=== PATIENT | female | born 1945 | race Caucasian/White ===

== ENCOUNTER 2016-08-12 13:02 | Inpatient (IN) | payer MEDICARE, OTHER ==
[~2016-08-12] VITALS: Ht 162.6 cm; Wt 89.5 kg
[2016-08-12] VITALS (9 sets, daily range): BP systolic 139–181; BP diastolic 50–74; PULSE 74–92; RESP 14–20; O2SAT 94–100
--- NOTE | 2016-08-12 13:16 | ED.REPORT ---
HPI-Abd Pain F 40 and Over Date of Service Aug 12, 2016 ED Provider: Brian Gimenez MD Pt is a 70 year old female with a hx of anemia, aortic valve replacement, vertigo, HTN, and a lower GI bleed May 2016 presenting to the ED complaining of bright red bloody stool in the x10 episodes onset at 1045 this morning. Associated symptoms include 5/10 lower left abd pain that shoots upward , facial numbness, fatigue, lightheadedness, dizziness, dysphagia. Denies nausea , vomiting, diarrhea, constipation, fever, chills. The pt takes 81 mg baby Aspirin per day. She was scheduled to have a colonoscopy at [place] on 08/15 but her PCP advised her to go to the ER due to her hx of anemia. Pt has not had a colonoscopy for the GI bleed in May, but has one scheduled for August 15. She has been getting regular colonoscopies since she was 36. Nursing Notes Stated Complaint: BLOODY STOOL Chief Complaint: Female Abdominal Pain Nursing Notes Reviewed: Yes Allergies: Coded Allergies: Beta-Blockers (Beta-Adrenergic Bloc (Verified Allergy, Intermediate, Hives , 08/12/16) atenolol (Verified Allergy, Mild, 08/12/16) Scheduled PRN Bisacodyl (Dulcolax) 5 Mg Tablet.dr 5 MG PO DAILY PRN PRN For Constipation General Time Seen by MD: 13:11 Chief Complaint Rectal bleeding Hx Obtained From: Patient Arrived By: Walk-in Sudden in Onset?: Yes Onset Occurred: 5 - 8 hours ago Symptom Duration: Since onset Progression since Onset: Constant Severity: Current: No pain currently Severity: Maximum: No pain Recent Healthcare: No recent doctor visit, No recent hospitalization Similar Sx Previous: No Past Medical History Past Medical History anemia, aortic valve replacement, vertigo, HTN Past Surgical History Reports: Cholecystectomy Family History Mother, aunt and grandmother have hx of colon cancer in their 60s-70s Smoking History Current Every Day Smoker Ambulatory Status Independent Review of Systems Constitutional: Reports: Fatigue, Denies: Chills, Fever GI: Reports: Abdominal pain, Bloody/tarry stool, Denies: Constipation, Diarrhea, Melena, Nausea, Vomiting Complete sys rev & neg: except as marked. Ears / Nose / Throat: Reports: Throat pain (Trouble swallowing) Neurologic: Reports: Dizziness, Lightheaded, Numbness Physical Exam Vital Signs Vital Signs (First) Date Time Temp Pulse Resp B/P Pulse Ox O2 Delivery O2 Flow Rate FiO2 08/12/16 13:05 36.4 92 20 181/74 100 08/12/16 14:09 Room Air Initial VS: Reviewed Head / Eyes: Atraumatic, Normocephalic, PERRL ENT: Mucous membranes moist, Conjunctiva normal, No scleral icterus Extremities: Vascular intact, Neuro intact, No swelling, No tenderness Skin: Warm, Dry, No cyanosis Neurologic: Alert, Oriented, Nonfocal Psychiatric: Mood/affect normal, Behavior normal, Normal thought content General/Constitutional: Awake, Alert Respiratory / Chest: Breath sounds NL, Breath sounds = bilat, No respiratory distress, No rales, No rhonchi, No wheezing, No stridor Cardiovascular: Heart rate NL, Regular rhythm, Heart sounds NL, Peripheral circulation NL Rectum / Perineum: Atraumatic, No gross blood Rectal for Blood: Negative: Melena present Guaiac positive. Interpretation & Diagnostics Lab Results Interpretation Result Diagram: 08/12/16 1320 08/12/16 1320 Test 08/12/16 13:20 08/12/16 15:33 White Blood Count 8.6th/mm3 (3.8-10.1) Red Blood Count 4.64mil/mm3 (3.90-5.20) Hemoglobin 11.0g/dL (12.0-15.6) Hematocrit 35.7% (35.0-46.0) Mean Corpuscular Volume 76.9fL (81-100) Mean Corpuscular Hemoglobin 23.7pg (27.0-35.0) Mean Corpuscular Hemoglobin Concent 30.8% (32.0-37.0) Red Cell Distribution Width 15.2% (12.3-15.4) Platelet Count 308bil/L (150-400) Neutrophils (%) (Auto) 56.1% (40-74) Lymphocytes (%) (Auto) 31.6% (14-46) Monocytes (%) (Auto) 8.4% (4-12) Eosinophils (%) (Auto) 3.2% (0-5) Basophils (%) (Auto) 0.6% (0-3) Prothrombin Time 10.5sec (8.1-12.5) Prothromb Time International Ratio 0.98ratio Sodium Level 139mEq/L (134-144) Potassium Level 4.0mEq/L (3.5-5.2) Chloride Level 100mEq/L (97-108) Carbon Dioxide Level 22mmol/L (18-29) Blood Urea Nitrogen 13mg/dL (8-27) Creatinine 0.64mg/dL (0.57-1.00) Estimat Glomerular Filtration Rate 132mL/min (>59) Glucose Level 124mg/dL (60-99) Calcium Level 9.7mg/dL (8.5-10.1) Total Bilirubin 0.4mg/dL (0.0-1.2) Aspartate Amino Transf (AST/SGOT) 28U/L (0-50) Alanine Aminotransferase (ALT/SGPT) 29U/L (0-32) Alkaline Phosphatase 102U/L (25-165) Total Protein 7.9g/dL (6.4-8.4) Albumin 4.9g/dL (3.4-5.0) Hold [place] Top Tube Received (Received) Urine Color Yellow (YELLOW) Urine Appearance Clear (CLEAR,HAZY) Urine pH 6.0 (5.0-8.0) Urine Specific [place] <1.005 (1.003-1.035) Urine Protein Negativemg/dL (NEG,TRACE) Urine Glucose (UA) Negativemg/dL (NEGATIVE) Urine Ketones Negativemg/dL (NEGATIVE) Urine Occult Blood Trace (NEGATIVE) Urine Nitrite Negative (NEGATIVE) Urine Bilirubin Negative (NEGATIVE) Urine Urobilinogen Normalmg/dL (NORMAL) Urine Leukocyte Esterase Negative (NEGATIVE) Urine RBC 0-2/hpf (0-2) Urine WBC 0-5/hpf (0-5) Urine Epithelial Cells Occasional/hpf (NONE-MOD) Urine Crystals None seen (NONE SEEN) Urine Bacteria None/hpf (NONE-FEW) Urine Hyaline Casts None/lpf (NONE) Urine Granular Casts None seen (NONE SEEN) Urine Waxy Casts None seen (NONE SEEN) Urine Red Blood Cell Casts None seen (NONE SEEN) Urine White Blood Cell Casts None seen (NONE SEEN) Urine Mucus None seen (None Seen) Urine Trichomonas None seen (NONE SEEN) Urine Yeast None (NONE SEEN) Urinalysis Comment None Urine Culture Reflexed Not indicated ECG Interpretation ECG Interpretation: No ST elevations. Time: 13:38 Interpreted by: ED physician Normal ECG Interpretation: Normal ECG w/ rate of... (84), Normal sinus rhythm X-Ray Chest Interpretation Chest Xray Interpretation: IMPRESSION: No acute cardiopulmonary disease. Dictated by: Beatriz Velez M.D. on 08/12/2016 at 14:04 View: Portable, 1 view Interpretation / Wet Read by: Interpret - Radiologist Re-Eval/Medical Decision Med Decision/Clinical Course 70-year-old female history of GI bleed, aortic valve replacement, anemia who was being evaluated as an outpatient for a GI bleed with plan for colonoscopy next week outside facility presenting with bright red blood per rectum 10 stools earlier today. No hematemesis. Mild abdominal pain. Blood pressure is normal. Hemoglobin is 11. We do not have a baseline. Stools no gross blood. Guaiac positive. Discussed with GI who recommended admission for GI bleed with plan to perform colonoscopy possible endoscopy. She does have a history of dysphagia. In the past. Started on PPI drip. Re-Evaluation/Progress : Time of Eval: 15:10 Patient Status: Condition improved Re-Evaluation/Progress Note: Discussed plan for admission and colonoscopy. Pt understands and agrees. Consultation #1: Referral / Consult Name: Iraj Cr MD Call Returned at: 14:57 Fire Equipment Inspector Helper: Agrees with plan Note: GI. See if the pt would like to be admitted overnight. Consultation #2: Referral / Consult Name: Larry Fraire MD Consulted With: Hospitalist Call Returned at: 15:06 Fire Equipment Inspector Helper: Will see patient, Agrees with plan, Accepts admit Consultation #3: Referral / Consult Name: Iraj Cr MD Call Returned at: 15:10 Note: GI. The pt will be admitted and have a colonoscopy. Counseled Regarding: Diagnosis, Lab results, Need for follow-up, When/why to return to ED Discharge & Departure Primary Impression: GI bleed GI bleed type/associated pathology: unspecified gastrointestinal hemorrhage type Qualified Code: K92.2 - Gastrointestinal hemorrhage, unspecified Disposition: ADMITTED TO HOSPITAL Discharge Condition All VS Reviewed: Yes Condition: Improved Referrals: OTHER,PHYSICIAN (PCP) (Family) Scribe Attestation Portions of this note were transcribed by Hannah. Guerrero, Dr. Gimenez personally performed the history, physical exam and medical decision-making; I reviewed and confirmed the accuracy of the information in the transcribed note. Signed by: Suly Barillas, 08/12/2016 and 1548. Brian Gimenez MD Aug 12, 2016 13:15 ANDREA EDGAR Aug 12, 2016 14:11
[2016-08-12] MEDS ORDERED: 0.9% Sodium Chloride 1,000 ML IV ONE (13:17)
[2016-08-12 13:39] LABS: BASOPHILS % (AUTO) 0.6 % (0-3); EOSINOPHILS % (AUTO) 3.2 % (0-5); MONOCYTES % (AUTO) 8.4 % (4-12); Mean Corpuscular Hemoglobin 23.7 pg (27.0-35.0); Mean Corpuscular Volume 76.9 fL (81-100); NEUTROPHILS % (AUTO) 56.1 % (40-74); Platelet Count 308 bil/L (150-400)
[2016-08-12 13:48] LABS: INR 0.98 ratio
[2016-08-12] MEDS ORDERED: Albuterol-Ipratropium 3 mL Inhalation Solution NEB ONE (14:00)
--- NOTE | 2016-08-12 14:10 | DRSVH ---
PROCEDURE: X-RAY CHEST ONE VIEW, PORTABLE ([id number]) INDICATIONS: Gastrointestinal Bleed TECHNIQUE: One view of the chest was acquired. COMPARISON: [facility], CR, CHEST 2VW, 03/29/2012, 15:45. FINDINGS: Surgical changes and devices: Sternotomy and a prosthetic heart valve. Lungs and pleura: No pleural effusions or pneumothorax. Lungs are clear. Mediastinum: Mediastinal contours appear normal. Heart size is normal. Bones and chest wall: No suspicious bony lesions. Overlying soft tissues appear unremarkable. IMPRESSION: No acute cardiopulmonary disease. Dictated by: Beatriz Velez M.D. on 08/12/2016 at 14:04 Approved by: Beatriz Velez M.D. on 08/12/2016 at 14:05
[2016-08-12] MEDS ORDERED: Ondansetron 2 mg/mL 2 mL Inj IVPUSH PRN (15:15)
[2016-08-12] MEDS ORDERED: Alum-Mag Hydrox-Simeth 30 mL Suspension PO PRN (15:15)
[2016-08-12] MEDS ORDERED: Pantoprazole 4 mg/mL 10 mL Inj IVPUSH ONE (15:20)
[2016-08-12] MEDS ORDERED: Pantoprazole Inj 80 MG, Pharmacy To Mix 1 EA in 0.9% Sodium Chloride 80 ML IV ONE ×2 (15:20)
[2016-08-12] MEDS ORDERED: Polyethylene Glycol (PEG) 17 Gm Powder PO PRN (15:25)
[2016-08-12] MEDS ORDERED: PEG/Electrolytes 4,000 mL Solution PO ONE ×2 (15:25→21:15)
--- NOTE | 2016-08-12 15:43 | PCM.HPMED ---
Subjective Date of Service Aug 12, 2016 Primary Provider: Admitting Physician: Primary Care Physician: Mohsen Crooks MD Attending Physician: Chief Complaint: - Bright red bleeding per rectum History of Present Illness: 70 year old female with a h/o anemia, aortic valve replacement, vertigo, hypertension presented to the ED with c/o bright red bloody stool. She states that bleeding started this morning with multiple episodes. It is associated with left lower abdominal pain, mild dizziness, fatigue and lightheadedness. She denies nausea, vomiting, diarrhea, constipation, fever, chills. She is on aspirin 81 mg. She was scheduled to have a colonoscopy at [place] on 08/15 but her PCP advised her to go to the ER due to her history of anemia and multiple episodes of bleeding. She had similar episode of lower GI bleed in 05/2016 but didn't underwent colonoscopy at that time. She has been getting regular colonoscopies since she was 36. In ED, she was hypertensive and mildly tachycardic. Labs were significant only for low hematocrit of 35.7.GI was consulted from ED, recommended to start PPI drip, NPO and possible colonoscopy tomorrow. Review of Systems: - Positive as per noted in HPI. Otherwise, a complete 14 - point review of system is negative. Allergies Coded Allergies: Beta-Blockers (Beta-Adrenergic Bloc (Verified Allergy, Intermediate, Hives , 08/12/16) atenolol (Verified Allergy, Mild, 08/12/16) PMH - Chronic anemia - Hypertension - Vertigo Surgical History - Aortic valve replacement - Cholecystectomy Social History Hx Alcohol Use: Yes (Once in a blue valencia-wine) Hx Substance Use: No Smoking Status: Current Every Day Smoker Exam Vital Signs Vital Sign - Last Date Time Temp Pulse Resp B/P Pulse Ox O2 Delivery O2 Flow Rate FiO2 08/12/16 14:09 74 18 98 Room Air 08/12/16 13:05 36.4 181/74 Exam General/Constitutional: Awake, Alert Head / Eyes: Atraumatic, Normocephalic, PERRL ENT: Mucous membranes moist, Conjunctiva normal, No scleral icterus Respiratory: Clear to auscultation bilaterally, Normal respiratory effort, No respiratory distress, No rales, No rhonchi, No wheezing, No stridor Cardiovascular: Regular rate and rhythm. No peripheral edema. No murmur, gallop. Extremities: Vascular intact, Neuro intact, No swelling, No tenderness Skin: Warm, Dry, No cyanosis Neurologic: Alert, Oriented, Nonfocal Psychiatric: Mood/affect normal, Behavior normal, Normal thought content Lab and Diagnostics Result Diagram: 08/12/16 1320 08/12/16 1320 X-Rays, CTs and MRIs CXR: IMPRESSION: No acute cardiopulmonary disease. Assessment & Plan GI bleeding - likely lower as it it bright red - GI consulted. Placed on PPI drip - NPO, Likely colonoscopy tomorrow - Bowel preparation Hypertension - Will continue to monitor - Home medications on hold as pt is NPO GI ppx: on PPI drip DVT ppx: SCDs. No medical anticoagulation due to GI bleeding Antiemetics and bowel regimen as per protocol. Status: To be admitted as inpatient due to complexity of medical condition that will require more than two days of hospital stay. Pain Evaluation: Adequate Pain Control GI Prophylaxis: Proton Pump Inhibitor VTE Prophylaxis: SCDs Resuscitation Status: CPR: Attempt Resuscitation Larry Fraire MD Aug 12, 2016 15:42
[2016-08-12 16:47] LABS: APPEARANCE,URINE CLEAR (CLEAR,HAZY); COLOR,URINE YELLOW (YELLOW)
[2016-08-12 16:48] LABS: OCCULT BLOOD,URINE TRACE (NEGATIVE); UROBILINOGEN,URINE NORMAL (NORMAL)
[2016-08-12] MEDS ORDERED: BISA-67 PO (18:24)
[2016-08-12] MEDS ORDERED: ASPI-973 PO (18:41)
[2016-08-12] MEDS ORDERED: LISI10TA PO (18:41)
[2016-08-12] MEDS ORDERED: SERT100T9 PO (18:41)
[2016-08-12] MEDS ORDERED: DIPH25CA6 PO (18:41)
[2016-08-12] MEDS ORDERED: VERA240C PO (18:41)
[2016-08-12] MEDS ORDERED: SIMV20TA4 PO (18:41)
[2016-08-12] MEDS ORDERED: NITR0.4T6 SL (18:41)
[2016-08-12] MEDS ORDERED: GABA600T2 PO (18:41)
[2016-08-12] MEDS ORDERED: LANS30CA14 PO (18:41)
[2016-08-12] MEDS ORDERED: GEMF600T PO (18:41)
--- NOTE | 2016-08-12 18:45 | NUR ---
Admit Pt was admitted to [facility] room 1019 at 1730. A&Ox3. Abdominal pain at tolerable level of 5/10. Protonix drip running. IV site looked good. Pt able to ambulate from stretcher to bed, steady gait. Admission and med req done. Pt's is going to bring her POLST in. Care continues.
[2016-08-12] MEDS ORDERED: fentaNYL-PF 50 mCg/mL 2 mL Inj ONE (19:06)
[2016-08-12] MEDS ORDERED: 0.9% Sodium Chloride 1,000 ML ONE (19:06)
--- NOTE | 2016-08-12 19:41 | NUR ---
Off Unit 1939 Patient off unit to Endo at 0 via hospital bed. Patient A&OX3 and serg. BARRIE ZAPIEN RA. Chart with patient. Addendum: 08/12/16 at 2233 by SABINA WERNER RN Correction: Patient left unit [facility], not bed.
[2016-08-12 19:51] LABS: APPEARANCE,URINE CLEAR (CLEAR,HAZY); COLOR,URINE YELLOW (YELLOW); OCCULT BLOOD,URINE NEGATIVE (NEGATIVE); UROBILINOGEN,URINE NORMAL (NORMAL)
--- NOTE | 2016-08-12 20:13 | PCM.ENDEGD ---
EGD Date of Service: Aug 12, 2016 Physician Ashley Cr MD Indication for Procedure melena anemia and bright red blood in stool Post Procedure Dx & Findings: gastric erosions and fundic gland polyps Procedure Esophagogastroduodenoscopy PROCEDURE IN DETAIL: The patient was placed in left lateral decubitus position. Bite block was placed. Scope lubricated, placed in posterior pharynx, passed through the cricopharyngeus and esophagus, slowly advanced the entire length of the gastric pouch, pylorus was identified, scope passed through the pylorus and descending portion of duodenum, withdrawn in the antrum, retroflexed upon itself for view of fundus and cardia. Scope was then withdrawn through the oropharynx. The esophagus showed none obstructing schatzki ring. Z line was at 42 cm. Minimal hiatal hernia noted. Stomach showed few 1-3 mm fundic gland polyps in the fundus. The cardia body and antrum were normal except few 2-3 mm erosions. Stomach was easily inflatable and deflatable using air. Duodenum was normal with normal villus structures and folds. We advanced to distal duodenum. Impression None obstruction schatzki ring (not the cause of dysphagia) Few small fundic gland polyps No source of anemia or bleeding Recommendation Colonoscopy in am Stop protonic IV Continue outpatient PPI ( she has lanzoprzole as outpt) Presedation Assessment Risks and Benefits Informed consent was obtained from the patient after all risks and benefits including but not limited to drug reaction, infection, pain, bleeding, perforation, as well as alternatives were discussed. Patient monitoring Continuous pulse oximetry, cardiac monitoring, blood pressure monitoring, IV access, and oxygen at 2L per nasal cannula. Periprocedural Fentanyl: Fentanyl 125mcg Incrementally Midazolam: Midazolam 6mg Incrementally Complications There were no periprocedural complications identified. Post Procedure Plan Post Procedure Recommendations 1. Restrict activities today. 2. Resume normal activities in the morning. 3. Resume medications. 4. GERD behavioral modification: - Avoid fatty, acidic, spicy, large meals - Do not lie down after meals - Do not eat or drink anything for at least 2 1/2 hours before going to bed at night - Discontinue tobacco and alcohol - Decrease or avoid caffeine - Avoid chocolate and mints - Decrease weight - Avoid aspirin and non steroidal anti-inflammatory agents (NSAID) such as Aleve, Advil, Mobic, Naproxen, Ibuprofen, etc 5. Add proton pump inhibitor. Take 30 minutes before 1st meal of the day. 6. Patient informed of normal post procedure side effects as bloating, drowsiness, blood streaking in the stool 7. If gastric biopsy reveal H.pylori, continue with appropriate treatment 8. If small bowel biopsy reveals celiac, continue with appropriate treatment 9. Please don't hesitate to call me with any questions Iraj Cr MD Aug 12, 2016 20:13
--- NOTE | 2016-08-12 22:30 | NUR ---
Back to floor Patient back to floor at 2033 via [facility]. Patient is A&OX3, and pleasant. SL. RA. Able to ambulate back to hospital bed. Chart with patient
[2016-08-13] VITALS (9 sets, daily range): BP systolic 110–168; BP diastolic 49–89; PULSE 73–84; RESP 16; O2SAT 95–99
--- NOTE | 2016-08-13 03:45 | NUR ---
Bowel Prep Patient started bowel prep at approx 2130. Patient has been having frequent watery loose stools throughout the night, but continues to be bloody. At 0345 Patient states that amount of watery stool is starting to decrease. Will continue to monitor, and continue Q1 hour checks.
[2016-08-13 07:41] LABS: BASOPHILS % (AUTO) 0.7 % (0-3); EOSINOPHILS % (AUTO) 4.4 % (0-5); MONOCYTES % (AUTO) 12.3 % (4-12); Mean Corpuscular Hemoglobin 23.9 pg (27.0-35.0); Mean Corpuscular Volume 78.4 fL (81-100); NEUTROPHILS % (AUTO) 56.8 % (40-74); Platelet Count 230 bil/L (150-400)
[2016-08-13] MEDS ORDERED: fentaNYL-PF 50 mCg/mL 2 mL Inj ONE (09:46)
[2016-08-13] MEDS ORDERED: 0.9% Sodium Chloride 1,000 ML ONE (09:46)
--- NOTE | 2016-08-13 11:28 | PCM.ENDCOL ---
Colonoscopy Date of Service: Aug 13, 2016 Physician Iraj Cr MD Indication for Procedure Blood in stool Post Procedure Dx & Findings: AVM Procedure Colonoscopy Prep poor in many areas. PROCEDURE IN DETAIL: The left side of the colon had relatively isolated adequate prep however throughout the colon, there were areas of old blood scattered throughout the colon which impaired visualization. He intubated the cecum and we were able to see the appendiceal orifice and ileocecal valve. There was a small maybe about 5-6 mm AVM that was oozing blood. Due to the angle, we used 3 hemostatic clips deployed and 2 mL of epinephrine injection at the site. Complete hemostasis achieved. Scope was withdrawn. There was also a 3 mm polyp in the cecum which was not removed. In the rectum retroflexion was done which shows some hemorrhoids. Impression Bleeding AVM status post epinephrine intake injection and he most stated clip deployment and hemostasis achieved. I suspect patient's canal have more blood already on coming out as a bowel movement. Mild hemorrhoids noted. Recommendation Follow hemoglobin and try to keep the hemoglobin level around 9. This is to give the patient some reserve in case there is rebleeding. Presedation Assessment Risks and Benefits Informed consent was obtained from the patient after all risks and benefits including but not limited to drug reaction, infection, pain, bleeding, perforation, as well as alternatives were discussed. Patient monitoring Continuous pulse oximetry, cardiac monitoring, blood pressure monitoring, IV access, and oxygen at 2L per nasal cannula. Periprocedural Fentanyl: Fentanyl 125mcg Incrementally Midazolam: Midazolam 6mg Incrementally Complications There were no periprocedural complications identified. Post Procedure Plan Post Procedure Recommendations 1. Restrict activities today. 2. Resume normal activities in the morning. 3. Resume medications. 4. Patient informed of normal post procedure side effects as bloating, drowsiness, blood streaking in the stool. 5. average risk CRCS. If colon polyps come back as: -Hyperplastic- can repeat colonoscopy in 10 years -Tubular adenoma- repeat colonoscopy in 5 years -Tubulovillous/villous adenoma- repeat colonoscopy in 3 years -If any dysplasia- return to clinic as soon as possible 6. Please don't hesitate to call me with any questions. Iraj Cr MD Aug 13, 2016 11:28
[2016-08-13] MEDS ORDERED: Lactated Ringer's 1,000 ML IV ONE (11:57)
--- NOTE | 2016-08-13 14:18 | NUR ---
Social Work: Initial Assessment Data & Assessment: EMR Reviewed. See Initial Assessment. Patient is a 70/yo female that admitted for GI Bleed. SW met with patient at bedside to discuss dc plan, complete initial assessment and SW role explained. Patient' NOK is her Ralph Galo- [phone]. Patient' DPOA is her daughter. SW requested a copy of patient's DPOA. Patient's PCP is Dr. Mohsen Crooks. Patient's primary insurance is Medicare and [facility]. Patient does niot have a re-admit score. Patient does not have LTC or VA benefits. Patient has never been to a SNF facility. Patient lives in a modular home with her . Patient is independent at baseline and drives. Patient's home has 8 steps to enter. Patient has had HH services, but canot recall the name. Patient does not have any social work needs at this time, but SW will continue to follow. Patient will pick her up when discharged. Plan: Patient will discharge home with no needs when medically ready. Patient will transport home via POV. SW will continue to follow. Dandre Quispe LMSW, ANGIE Addendum: 08/13/16 at 1428 by DANDRE QUISPE Amended: Links added.
--- NOTE | 2016-08-13 17:18 | PCM.PNMED ---
Subjective Date of Service Aug 13, 2016 Subjective reports migraine headache post colonoscopy today. Exam Vital Signs Vital Sign - Last Date Time Temp Pulse Resp B/P Pulse Ox O2 Delivery O2 Flow Rate FiO2 08/13/16 11:47 36.9 79 16 150/49 98 Room Air 08/13/16 11:20 2 Intake and Output 08/12/16 08/12/16 08/13/16 Cumulative From/Thru 15:00 23:00 07:00 08/12/16 13:05 - 08/13/16 06:52 Intake Total 1000 ml 300 ml 0 ml 1300 ml Output Total 350 ml 350 ml Balance 1000 ml -50 ml 0 ml 950 ml Intake Oral 0 ml 0 ml 0 ml IV Total 1000 ml 300 ml 0 ml 1300 ml Output Urine Total 350 ml 350 ml # Voids 2 2 # Bowel Movements 4 4 General: Alert, Cooperative, No Acute Distress Eyes: Scleral Anicteric Mouth: Mucous Membr Moist/[place] Neck: Supple Chest & Lungs: Chest Wall Normal, Clear to auscultation & percussion Cardiovascular: Regular Rate/Rhythm Abdomen: Tender (mild left lower. no rebound/guarding), Non-distended, Normoactive bowel tones, Soft Extremities: No cyanosis/clubbing/edma bilat Neurological: Grossly Neurologically Intact, Normal Speech IVs and Medications Medications Reviewed: Medications were reviewed in detail Lab and Diagnostics Result Diagram: 08/13/1659 08/13/16 0659 X-Rays, CTs and MRIs CXR: IMPRESSION: No acute cardiopulmonary disease. Assessment & Plan 70 year old female with a h/o anemia, bovine aortic valve replacement, vertigo, hypertension presented to the ED with c/o bright red bloody stool. # Acute lower GI bleed, poa. - appreciate GI consult. will f/u w/ recs - EGD 08/12 showing: "None obstruction Schatzki ring (not the cause of dysphagia ) Few small fundic gland polyps No source of anemia or bleeding" - colonoscopy 08/13: "Bleeding AVM status post epinephrine intake injection and he most stated clip deployment and hemostasis achieved." - appreciate GI consult. will f/u w/ recs - f/u repeat h/h - keep Hgb > 9 - advance diet per GI recs # History of Hypertension. fairly stable - hold PO meds for now - cover with prn IV Hydralazine # Migraine headache. acute on chronic. - supportive care Dispo: 1-2 days pending stable h/h GI Prophylaxis: Proton Pump Inhibitor VTE Prophylaxis: SCDs VTE Mechanical Devices: Intermittant Pneumatic CD Resuscitation Status: CPR: Attempt Resuscitation Christiano Herrera Aug 13, 2016 17:18
--- NOTE | 2016-08-13 18:47 | NUR ---
Bowels Pt continuing to have loose stools with blood in them, but frequency and amount of blood are decreasing as shift progresses. H&H has improved since last lab. Pt is asymptomatic and states not dizzy at all when getting up to BR. Advised if she does have any s/s she needs to use call light and have us help her, so she doesn't fall. Pt is agreeable. This afternoon pt has c/o migraine and wants oxygen since she states it helps her. advised 2L NC. Pt still on clear liquids only. Pt has only mild LLQ pain 07/25 and declines meds. Addendum: 08/13/16 at 1933 by JUAN TA RN Pt c/o sore bottom from going so much, gave her Calmoseptine cream and barrier wipes to use. Bottom not red, but was tender.
[2016-08-13] MEDS ORDERED: Lactated Ringer's 1,000 ML IV SCH (21:20)
--- NOTE | 2016-08-14 03:22 | NUR ---
Gabapentin Patient states that she takes scheduled gabapentin, 600mg TID, but has not received any since her admission. Night hospitalist notified, and an order for 600mg was written for this evening. Hospitalist has asked to pass this along to day shift nurse, so scheduled gabapentin regimen can be completed with day hospitalist team. Patient continues to use 2 L O2 via NC for migraine. Care continues.
--- NOTE | 2016-08-14 03:26 | NUR ---
08/13/16 11pm HGB Order for evening HBG lab draw was completed, and results showed a HGB of 8.1. Night hospitalist notified; no new orders at this time. Patient has had no complaints of dizziness, or lightheadedness, and bowel movements continue to decrease in frequency, amount, and the amount of blood that is present. Last BM observed did not have a significant amount of blood present. Will continue to monitor, and continue Q1 hour checks.
[2016-08-14 06:10] VITALS: BP 134/72; PULSE 78; RESP 18; O2SAT 98
[2016-08-14 06:48] LABS: Mean Corpuscular Hemoglobin 23.8 pg (27.0-35.0); Mean Corpuscular Volume 78.8 fL (81-100)
--- NOTE | 2016-08-14 08:13 | CONS ---
[address] [address] CONSULTATION REPORT PATIENT: YADI KUMAR : 1945 MR#: [id number] ADMIT: 08/12/2016 JOB ID: [id number] DATE OF SERVICE: 08/12/2016 REASON FOR CONSULTATION: It was a pleasure seeing the patient at [facility] Emergency Department for rectal bleeding. HISTORY OF PRESENT ILLNESS: This is a 70-year-old lady with history of anemia, aortic valve replacement, not on Coumadin, vertigo, high blood pressure, as well as daily baby aspirin and intermittent use of NSAIDs. She has issues with blood in the stools recently and she was seen by her physician at the [facility] and was scheduled for a colonoscopy on August 15, 2016. Also in the past couple of weeks she said she had black stools and a bloating gas as well. This was mentioned to her [facility] and they were also planning on doing an upper endoscopy at the same time on the . However, this morning she was up around 10:00 in the morning and around 11 she had to go to the bathroom. When she had a bowel movement she passed out formed normal stools but she noticed a significant amount of bleeding. She noted blood and she also noted clots on the toilet paper as well as the toilet. She had multiple smaller episodes, up to 10 times. The last episode was 1:00 in the afternoon, which was approximately 4 hours ago. This was reported to her doctor at [facility] and she was asked to go to the emergency room. In the emergency room she came in and her vitals were stable. She was not tachycardic and her blood pressure was actually on the high side at 181/74, but her hemoglobin was 11. BUN was 13, creatinine was 0.64. GI was consulted and the patient was placed on IV fluids and I saw her. When I saw her, she denied any nausea, vomiting, fevers, chills, headaches, blurry vision, dizziness, lightheadedness, chest pain, shortness of breath, abdominal pain. No bowel movement since 1:00 this afternoon. She does not have any urge to have a bowel movement. PAST MEDICAL HISTORY: Chronic anemia, high blood pressure, vertigo. PAST SURGICAL HISTORY: 1. Cholecystectomy. 2. Aortic valve replacement with pig valve. Not on Coumadin. SOCIAL HISTORY: She uses alcohol rarely. She is a daily smoker. No IVDA. PHYSICAL EXAMINATION: The patient was alert, oriented, comfortable. Temperature 36.4, pulse 74, respirations 18, blood pressure 181/74, saturating at 98% on room air. Head and neck: No icterus. Lungs: Clear. Cardiovascular: Regular rate and rhythm, with normal S1 and S2. Abdomen: Soft. Mild epigastric tenderness, without guarding, rebound, or firmness, with normoactive bowel sounds. Extremities: There is no pitting edema of the ankles. Skin: Shows no jaundice. LABORATORY DATA: As above. IMPRESSION: And plan Most likely lower GI bleeding, but I am concerned about her history of black stool intermittently, as well as reported dysphagia. I doubt this is an upper GI bleed; however, there may be a combinational issue. She may be chronically anemic due to an upper GI bleed. However, it is also possible that this could have been hemorrhoidal bleeding that she comes in with, it is difficult to know. On the other hand this could be a diverticular bleed. We do not have any records about her endoscopies in the past. We advised her that she may be better served going to an [facility] physician. However, she did not want to travel despite the drawbacks I described to her. Therefore we will do our best taking care of her and we have already requested paperwork from her primary doctor and the [facility]. We will proceed with the EGD first and determine whether there is a potential source. If the EGD is unremarkable, we will proceed with colonoscopy. MTDD
--- NOTE | 2016-08-14 09:50 | NUR ---
Social Work: KAREN KAREN signed
--- NOTE | 2016-08-14 13:21 | PCM.DIMED ---
Discharge Instructions Date of Service Aug 14, 2016 Dates of Hospitalization Aug 12, 2016 at 16:12 Discharge Diagnosis Discharge Diagnosis # Acute lower gastrointestinal bleed, present on admission. - Esophagogastroduodenoscopy (EGD) 08/12/16 showing: "None obstruction Schatzki ring (not the cause of dysphagia). Few small fundic gland polyps. No source of anemia or bleeding" - Colonoscopy 08/13/16: "Bleeding AVM status post epinephrine intake injection and he most stated clip deployment and hemostasis achieved." # History of Hypertension. fairly stable # Migraine headache. acute on chronic. Diet Low fat, Low Sodium, Heart Healthy Activity No restrictions Call your provider Fever or Chills, Shortness of breath, Bleeding, Chest pain Patient Instructions Seek immediate medical attention if any new or worsening signs or symptoms occur. Follow-up plan 1. Followup with your primary care provider in within one week 2. Followup either with gastroenterology in 2 weeks. You may either followup with your previous agent in [place] or with Dr. Iraj Cr who saw you here during this hospitalization. Dr. Cr's office contact information is: [address] [address] Follow-up Provider: Mohsen Crooks MD Follow-up with PCP in: 1 week Provider: Iraj Cr MD, Masoud Aug 14, 2016 13:21
--- NOTE | 2016-08-14 13:57 | PCM.PNMED ---
Subjective Date of Service Aug 14, 2016 Subjective Pt states she is feeling well today, no N/V/D, weakness/dizziness, hemoptysis, or hematochezia. She states she had a brown bowel movement today with no bloody or black stool. No other complaints at this time. Exam Vital Signs Vital Sign - Last Date Time Temp Pulse Resp B/P Pulse Ox O2 Delivery O2 Flow Rate FiO2 08/14/16 08:32 Supplement Oxygen 08/14/16 06:10 36.9 78 18 134/72 98 08/13/16 11:20 2 Intake and Output 08/13/16 08/13/16 08/14/16 Cumulative From/Thru 15:00 23:00 07:00 08/12/16 13:05 - 08/14/16 06:10 Intake Total 500 ml 418 ml 875 ml 3093 ml Output Total 1 ml 950 ml 1301 ml Balance 500 ml 417 ml -75 ml 1792 ml Intake Oral 418 ml 875 ml 1293 ml IV Total 500 ml 1800 ml Output Urine Total 1 ml 950 ml 1301 ml # Voids 2 # Bowel Movements 2 1 7 Exam General: Alert, Oriented X3, Cooperative, No Acute Distress Head: Normocephalic, atraumatic. External ears normal. Eyes: PERRLA, EOMI. Anicteric sclerae. Mouth: Mouth Normal, Mucous Membranes Moist/[place] Neck: Neck supple with full range of motion. Chest & Lungs: Clear to auscultation bilaterally with no crackles, wheezes, or rhonchi. Cardiovascular: Regular Rate/Rhythm, Normal S1, Normal S2, Systolic murmur present Abdomen: Non-tender, Non-distended, No masses, Normoactive bowel tones, Soft Musculoskeletal: Normal Range of Motion Extremities: No cyanosis/clubbing/edema bilaterally Neurological: Grossly Neurologically Intact, Normal Speech Lab and Diagnostics Result Diagram: 08/14/16 0557 08/14/16 0557 X-Rays, CTs and MRIs CXR: IMPRESSION: No acute cardiopulmonary disease. Assessment & Plan Patient 70 year old female with a h/o anemia, bovine aortic valve replacement, vertigo, hypertension presented to the ED with c/o bright red bloody stool. Acute lower GI bleed. - Pt presented with bloody red stool. Colonoscopy showed bleeding AVM in cecum, now status post epinephrine injection and hemostatic clip deployment. She does not appear to be actively beleding anymore, Hb is stable and pt is asymptomatic. - From a GI standpoint, she is appropriate for discharge when medically appropriate. We will sign off for now. Please do not hesitate to call us with any further questions or concerns. - Follow up with Dr. Cr outpatient 2 weeks after discharge. GI Prophylaxis: Proton Pump Inhibitor VTE Prophylaxis: SCDs VTE Mechanical Devices: Intermittant Pneumatic CD Resuscitation Status: CPR: Attempt Resuscitation Kike Jernigan Aug 14, 2016 13:57
--- NOTE | 2016-08-14 15:23 | NUR ---
Discharge note- Patient complained of headache relieved with Gabapentin and Tylenol. No complaints of GI distress. No signs of bleeding. Tolerated soft diet.Discharged to home with personal belongings.
--- NOTE | 2016-08-14 18:28 | PCM.DC.MED ---
Discharge Summary Date of Service Aug 14, 2016 Dates of Hospitalization Date of Hospital Admission Aug 12, 2016 at 16:12 Date of Discharge: Aug 14, 2016 Providers: Admitting Physician: Larry Fraire MD Primary Care Physician: Mohsen Crooks MD Attending Physician: Larry Fraire MD Diagnosis at Time of Discharge Diagnosis at Time of Discharge # Acute lower gastrointestinal bleed, present on admission. - Esophagogastroduodenoscopy (EGD) 08/12/16 showing: "None obstruction Schatzki ring (not the cause of dysphagia). Few small fundic gland polyps. No source of anemia or bleeding" - Colonoscopy 08/13/16: "Bleeding AVM status post epinephrine intake injection and he most stated clip deployment and hemostasis achieved." # History of Hypertension. fairly stable # Migraine headache. acute on chronic. Consultations 1. GI (Dr. Cr) Procedures XRay, CTs & MRIs CXR: IMPRESSION: No acute cardiopulmonary disease. Invasive Procedures EGD Date of Service: Aug 12, 2016 Physician Ashley Cr MD Indication for Procedure melena anemia and bright red blood in stool Post Procedure Dx & Findings: gastric erosions and fundic gland polyps Procedure Esophagogastroduodenoscopy PROCEDURE IN DETAIL: The patient was placed in left lateral decubitus position. Bite block was placed. Scope lubricated, placed in posterior pharynx, passed through the cricopharyngeus and esophagus, slowly advanced the entire length of the gastric pouch, pylorus was identified, scope passed through the pylorus and descending portion of duodenum, withdrawn in the antrum, retroflexed upon itself for view of fundus and cardia. Scope was then withdrawn through the oropharynx. The esophagus showed none obstructing schatzki ring. Z line was at 42 cm. Minimal hiatal hernia noted. Stomach showed few 1-3 mm fundic gland polyps in the fundus. The cardia body and antrum were normal except few 2-3 mm erosions. Stomach was easily inflatable and deflatable using air. Duodenum was normal with normal villus structures and folds. We advanced to distal duodenum. Impression None obstruction schatzki ring (not the cause of dysphagia) Few small fundic gland polyps No source of anemia or bleeding Recommendation Colonoscopy in am Stop protonic IV Continue outpatient PPI ( she has lanzoprzole as outpt) Post Procedure Plan Post Procedure Recommendations 1. Restrict activities today. 2. Resume normal activities in the morning. 3. Resume medications. 4. GERD behavioral modification: - Avoid fatty, acidic, spicy, large meals - Do not lie down after meals - Do not eat or drink anything for at least 2 1/2 hours before going to bed at night - Discontinue tobacco and alcohol - Decrease or avoid caffeine - Avoid chocolate and mints - Decrease weight - Avoid aspirin and non steroidal anti-inflammatory agents (NSAID) such as Aleve, Advil, Mobic, Naproxen, Ibuprofen, etc 5. Add proton pump inhibitor. Take 30 minutes before 1st meal of the day. 6. Patient informed of normal post procedure side effects as bloating, drowsiness, blood streaking in the stool 7. If gastric biopsy reveal H.pylori, continue with appropriate treatment 8. If small bowel biopsy reveals celiac, continue with appropriate treatment 9. Please don't hesitate to call me with any questions Iraj Cr MD Aug 12, 2016 20:13 <Electronically signed by Iraj Cr MD> 08/12/162012 Colonoscopy Date of Service: Aug 13, 2016 Physician Iraj Cr MD Indication for Procedure Blood in stool Post Procedure Dx & Findings: AVM Procedure Colonoscopy Prep poor in many areas. PROCEDURE IN DETAIL: The left side of the colon had relatively isolated adequate prep however throughout the colon, there were areas of old blood scattered throughout the colon which impaired visualization. He intubated the cecum and we were able to see the appendiceal orifice and ileocecal valve. There was a small maybe about 5-6 mm AVM that was oozing blood. Due to the angle, we used 3 hemostatic clips deployed and 2 mL of epinephrine injection at the site. Complete hemostasis achieved. Scope was withdrawn. There was also a 3 mm polyp in the cecum which was not removed. In the rectum retroflexion was done which shows some hemorrhoids. Impression Bleeding AVM status post epinephrine intake injection and he most stated clip deployment and hemostasis achieved. I suspect patient's canal have more blood already on coming out as a bowel movement. Mild hemorrhoids noted. Recommendation Follow hemoglobin and try to keep the hemoglobin level around 9. This is to give the patient some reserve in case there is rebleeding. Presedation Assessment Risks and Benefits Informed consent was obtained from the patient after all risks and benefits including but not limited to drug reaction, infection, pain, bleeding, perforation, as well as alternatives were discussed. Patient monitoring Continuous pulse oximetry, cardiac monitoring, blood pressure monitoring, IV access, and oxygen at 2L per nasal cannula. Periprocedural Fentanyl: Fentanyl 125mcg Incrementally Midazolam: Midazolam 6mg Incrementally Complications There were no periprocedural complications identified. Post Procedure Plan Post Procedure Recommendations 1. Restrict activities today. 2. Resume normal activities in the morning. 3. Resume medications. 4. Patient informed of normal post procedure side effects as bloating, drowsiness, blood streaking in the stool. 5. average risk CRCS. If colon polyps come back as: -Hyperplastic- can repeat colonoscopy in 10 years -Tubular adenoma- repeat colonoscopy in 5 years -Tubulovillous/villous adenoma- repeat colonoscopy in 3 years -If any dysplasia- return to clinic as soon as possible 6. Please don't hesitate to call me with any questions. Iraj Cr MD Aug 13, 2016 11:28 <Electronically signed by Iraj Cr MD> 08/13/16 1128 Brief History 70 year old female with a h/o anemia, bovine aortic valve replacement, vertigo, hypertension presented to the ED with c/o bright red bloody stool. Hospital Course # Acute lower GI bleed, poa. - appreciate GI consult. - EGD 08/12 showing: "None obstruction Schatzki ring (not the cause of dysphagia ) Few small fundic gland polyps No source of anemia or bleeding" - colonoscopy 08/13: "Bleeding AVM status post epinephrine intake injection and he most stated clip deployment and hemostasis achieved." - post colonoscopy h/h remained stable. pt tolerating advanced PO diet and without any further blood per rectum - per discussion with GI consult pt cleared for d/c home with resumption of low dose ASA # History of Hypertension. stable # Migraine headache. acute on chronic. improved by day of d/c abdomen soft, nt, nd, +bs Exam Vital Signs (Last) Date Time Temp Pulse Resp B/P Pulse Ox O2 Delivery O2 Flow Rate FiO2 08/14/16 08:32 Supplement Oxygen 08/14/16 06:10 36.9 78 18 134/72 98 08/13/16 11:20 2 Test 08/12/16 13:20 08/12/16 19:23 08/13/16 06:59 08/14/16 05:57 Prothrombin Time 10.5sec (8.1-12.5) Prothromb Time International Ratio 0.98ratio Total Bilirubin 0.4mg/dL (0.0-1.2) Aspartate Amino Transf (AST/SGOT) 28U/L (0-50) Alanine Aminotransferase (ALT/SGPT) 29U/L (0-32) Alkaline Phosphatase 102U/L (25-165) Total Protein 7.9g/dL (6.4-8.4) Albumin 4.9g/dL (3.4-5.0) Hold [place] Top Tube Received (Received) Urine Color Yellow (YELLOW) Urine Appearance Clear (CLEAR,HAZY) Urine pH 6.0 (5.0-8.0) Urine Specific [place] 1.015 (1.003-1.035) Urine Protein Negativemg/dL (NEG,TRACE) Urine Glucose (UA) Negativemg/dL (NEGATIVE) Urine Ketones Negativemg/dL (NEGATIVE) Urine Occult Blood Negative (NEGATIVE) Urine Nitrite Negative (NEGATIVE) Urine Bilirubin Negative (NEGATIVE) Urine Urobilinogen Normalmg/dL (NORMAL) Urine Leukocyte Esterase Trace (NEGATIVE) Urine RBC 0-2/hpf (0-2) Urine WBC 6-10/hpf (0-5) Urine Epithelial Cells Occasional/hpf (NONE-MOD) Urine Crystals None seen (NONE SEEN) Urine Bacteria None/hpf (NONE-FEW) Urine Hyaline Casts None/lpf (NONE) Urine Granular Casts None seen (NONE SEEN) Urine Waxy Casts None seen (NONE SEEN) Urine Red Blood Cell Casts None seen (NONE SEEN) Urine White Blood Cell Casts None seen (NONE SEEN) Urine Mucus None seen (None Seen) Urine Trichomonas None seen (NONE SEEN) Urine Yeast None (NONE SEEN) Urinalysis Comment None Urine Culture Reflexed Indicated Neutrophils (%) (Auto) 56.8% (40-74) Lymphocytes (%) (Auto) 25.7% (14-46) Monocytes (%) (Auto) 12.3% (4-12) Eosinophils (%) (Auto) 4.4% (0-5) Basophils (%) (Auto) 0.7% (0-3) White Blood Count 7.1th/mm3 (3.8-10.1) Red Blood Count 3.49mil/mm3 (3.90-5.20) Hemoglobin 8.3g/dL (12.0-15.6) Hematocrit 27.5% (35.0-46.0) Mean Corpuscular Volume 78.8fL (81-100) Mean Corpuscular Hemoglobin 23.8pg (27.0-35.0) Mean Corpuscular Hemoglobin Concent 30.2% (32.0-37.0) Red Cell Distribution Width 15.0% (12.3-15.4) Platelet Count 235bil/L (150-400) Sodium Level 145mEq/L (134-144) Potassium Level 3.6mEq/L (3.5-5.2) Chloride Level 108mEq/L (97-108) Carbon Dioxide Level 24mmol/L (18-29) Blood Urea Nitrogen 5mg/dL (8-27) Creatinine 0.50mg/dL (0.57-1.00) Estimat Glomerular Filtration Rate 175mL/min (>59) Glucose Level 106mg/dL (60-99) Calcium Level 8.8mg/dL (8.5-10.1) Discharge Medications Discharge Medications Aspirin (Aspirin) 81 Mg Tablet 81 MG PO DAILY (Reported) Gabapentin (Gabapentin) 600 Mg Tablet 600 MG PO TID (Reported) Gemfibrozil (Lopid) 600 Mg Tablet 600 MG PO DAILY (Reported) Lansoprazole DR (Prevacid) 30 Mg Capsule 30 MG PO BID (Reported) Lisinopril (Lisinopril) 10 Mg Tablet 10 MG PO DAILY (Reported) Sertraline HCl (Sertraline) 100 Mg Tablet 100 MG PO HS (Reported) Simvastatin (Simvastatin) 20 Mg Tablet 20 MG PO HS (Reported) Verapamil ER (Verapamil ER) 240 Mg Cap24h.pel 240 MG PO DAILY (Reported) As needed Bisacodyl (Dulcolax) 5 Mg Tablet.dr 5 MG PO DAILY PRN PRN For Constipation ( Reported) diphenhydrAMINE HCl (Benadryl) 25 Mg Capsule 25 MG PO Q4 PRN PRN For Itching ( Reported) Miscellaneous Medications Nitroglycerin SL (Nitroglycerin SL) 0.4 Mg Tab.subl 0.4 MG SL (Reported) Followup Plan Disposition: Home Follow-up plan 1. Followup with your primary care provider in within one week 2. Followup either with gastroenterology in 2 weeks. 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 Iraj Cr who saw you here during this hospitalization. Dr. Cr's office contact information is: [address] [address] Discharge Diet: Low fat, Low Sodium, Heart Healthy Discharge Activity: No restrictions Patient Instructions Seek immediate medical attention if any new or worsening signs or symptoms occur. Follow-up Provider: Mohsen Crooks MD Follow-up with PCP in: 1 week Provider: Iraj Cr MD Time spent 35 min copies to: Mohsen Crooks MD, Masoud Aug 14, 2016 18:28
[2016-09-05] MEDS ORDERED: CALC-78 PO (15:50)
[2016-09-05] MEDS ORDERED: FEXO180T85 PO (15:50)
[2016-09-05] MEDS ORDERED: VERA120T PO (15:50)
[2016-09-05] MEDS ORDERED: CHOL200025 PO (15:50)
[2016-09-05] MEDS ORDERED: [UNRECOGNIZED DRUG - CODE] PO (15:50)
[2016-09-05] MEDS ORDERED: MULT1CAP33 PO (15:50)
== END 2016-08-14 15:22 | disposition home or self-care (01) | DRG 358 ==
LOC: SED 13:02 → OSC 16:12
PROVIDERS: ADMIT Internal Medicine; ATTEND Internal Medicine
PROC: 0DJ08ZZ Inspection of Upper Intestinal Tract, Via Natural or Artificial Opening Endoscopic (ICD-10-PCS; 2016-08-12 19:00)
PROC: 0W3P4ZZ Control Bleeding in Gastrointestinal Tract, Percutaneous Endoscopic Approach (ICD-10-PCS; principal; 2016-08-13 10:30)
DX: K55.21 Angiodysplasia of colon with hemorrhage (principal); D50.0 Iron deficiency anemia secondary to blood loss (chronic); Z95.2 Presence of prosthetic heart valve; I10 Essential (primary) hypertension; Z79.82 Long term (current) use of aspirin; F17.200 Nicotine dependence, unspecified, uncomplicated; K64.8 Other hemorrhoids

== ENCOUNTER 2016-09-07 07:06 | Day surgery (SDC) | payer MEDICARE, OTHER ==
[~2016-09-07] VITALS: Ht 162.6 cm; Wt 85.9 kg
[~2016-09-07 07:06] MED LIST: ASPI-973 PO; BISA-67 PO; CALC-78 PO; CHOL200025 PO; DIPH25CA6 PO; FEXO180T85 PO; GABA600T2 PO; GEMF600T PO; LANS30CA14 PO; LISI10TA PO; Lactated Ringer's 1,000 ML IV ONE; MULT1CAP33 PO; NITR0.4T6 SL; SERT100T9 PO; SIMV20TA4 PO; VERA120T PO; VERA240C PO; [UNRECOGNIZED DRUG - CODE] PO
[2016-09-07] MEDS ORDERED: fentaNYL-PF 50 mCg/mL 2 mL Inj ONE (07:07)
[2016-09-07] MEDS ORDERED: Propofol 10,000 mCg/mL 20 mL Inj ONE ×2 (07:07)
--- NOTE | 2016-09-07 07:26 | PCM.HPANE ---
Patient Data Surgeon Admitting Provider: Attending Provider:Iraj Cr MD Primary Care Physician:Mohsen Crooks MD Other Provider:Lori Edmondsingham Anesthesia Reason for Visit Postgastric Surgery Syndromes Ht/WT & BMI Body Mass Index Allergies Coded Allergies: Beta-Blockers (Beta-Adrenergic Bloc (Verified Allergy, Intermediate, Hives , 09/07/16) atenolol (Verified Allergy, Mild, 09/07/16) Past Anesthesia History Anesthesia History: Denies:: Abnormal Airway, Anesthesia Reactions, Difficult Intubation Diabetes History Hx Diabetes?: No MRSA MRSA: No Medications Blood Thinner: Aspirin Reported Medications Cholecalciferol (Vitamin D3) (Vitamin D3)2,000 Unit Tablet2,000 Unit PO DAILY 09/05/16 Multivitamin (Multivitamins)1 Each Capsule1 Each PO DAILY 09/05/16 [Darvocet-N] No Conflict Kiszq509 Mg PO QID PRN For Pain 09/05/16 Calcium Carbonate/Vitamin D3 (Calcium 500 + Vit D Caplet)1 Each Tablet1 Each PO DAILY 09/05/16 Verapamil (Calan)120 Mg Rowfir503 Mg PO DAILY Ref 0 09/05/16 Fexofenadine (Milvia Allergy)180 Mg Pypylz736 Mg PO DAILY Ref 0 09/05/16 Simvastatin 20 Mg Ikmlad66 Mg PO HS Ref 0 08/12/16 diphenhydrAMINE HCl (Benadryl)25 Mg Jzplhfp45 Mg PO Q4 PRN For Itching Ref 0 08/12/16 Sertraline HCl (Sertraline)100 Mg Appsvz124 Mg PO HS 30 Days Ref 0 08/12/16 Nitroglycerin SL 0.4 Mg Tab.subl0.4 Mg SL SPASMS 08/12/16 Lisinopril 10 Mg Mdikhb17 Mg PO DAILY HIGH BLOOD PRESSURE 30 Days Ref 0 08/12/[address] (Prevacid)30 Mg Mzllptg06 Mg PO BID Ref 0 08/12/16 Gemfibrozil (Lopid)600 Mg Idtdtw440 Mg PO BID CHOLESTEROL 08/12/16 Gabapentin 600 Mg Ddjjwf221 Mg PO QID Ref 0 08/12/16 Aspirin 81 Mg Mlhgko40 Mg PO DAILY Ref 0 08/12/16 Bisacodyl (Dulcolax)5 Mg Tablet.dr10 Mg PO DAILY PRN For Constipation Ref 0 08/12/16 Discontinued Reported Medications Verapamil ER 240 Mg Cap24h.hgo975 Mg PO DAILY Ref 0 08/12/16 History History of ENT Problems?: Yes HEENT History: Positive for:: Dysphagia (Uses nitro rarely for dysphagia) Denies:: Abnormal Airway Cataracts Difficult Intubation Sinus Problem Hx of Heart Problems?: Yes Cardiovascular History: Positive for:: Cardiac Surgery (Open heart surgery 2009) Chest Pain Hypertension Valvular Heart Disease (Bovine AV replacement) Denies:: Congestive Heart Failure Edema Heart Murmur Irregular Heartbeat Pacemaker Thrombophlebitis Hx of Respiratory Problem?: No Respiratory History: Positive for:: Pneumonia (Many years ago) Denies:: Tuberculosis Hx Neurologic Problems?: Yes Neurological History: Positive for:: Dizziness Headaches Denies:: Alzheimer's Disease CVA Dementia Parkinson's Disease Seizures Hx of GI Problems?: Yes Gastrointestinal History: Positive for:: Gastroesphageal Reflux ("Once in a blue valencia") Gastrointestinal Bleeding (Present admission) Heartburn Rectal Bleeding (Current problem; blood in stool this morning) Denies:: Cirrhosis Diverticulitis Hepatitis Hiatal Hernia Hx of Problems?: Yes Genitourinary History: Positive for:: Kidney Stones Urinary Tract Infection Female Hx: Denies:: Currently Endometriosis Pelvic Inflammatory Problems with Breasts? Hx Musculoskeletal Problems?: Yes Musculoskeletal History: Positive for:: Back Injury Denies:: Joint Replacement Musculoskeletal Trauma Hx of Psycho/Social Problems?: Yes Psycho Social History: Positive for:: Anxiety Hx Depression Denies:: Bipolar Disorder Suicide Attempt Hx Surgeries?: Yes (Aortic valve replacement (bovine), julien, hysterectomy, knee, ankle,) Hx Any Other Health Problems?: Yes Other History: Positive for:: Hospitalization (Open heart surgery) Denies:: Cancer Thyroid Disease History Blood Transfusions: Denies:: Blood Transfuse Reaction Blood Transfusions Hx Diabetes: No Hx Alcohol Use: YesHx Substance Use: No Smoking Status: Former Smoker Have You Smoked inLast 12 mo: No Stop/Bang Risk Assessment Category Category 1A: Patient has history of documented sleep apnea, and HAS NOT received any narcotic, sedative or anesthesia administration during this stay. Category 1B: Patient has history of documented sleep apnea, and HAS received any narcotic , sedative or anesthesia administration during this stay Category 2: Patient has SUSPECTED Obstructive Sleep Apnea, and HAS received any narcotic , sedative or anesthesia administration during this stay. Category 3: Patient has SUSPECTED Obstructive Sleep Apnea and HAS NOT received narcotic, sedative or anesthesia administration during this stay. Category 4: Outpatient in Procedural Areas with known sleep apnea or who screen positive for High Risk via the STOP/BANG questionnaire. Exam Exam General Appearance: Alert, Oriented X3, Cooperative, No Acute Distress HEENT/AIRWAY: MP 2 Lungs: Clear to Auscultation, Normal Air Movement Heart: Exam Unremarkable, Regular Rate/Rhythm, No Murmurs/Rubs/Gallops Plan Impression Patient chart reviewed, patient interviewed and anesthestic plan with risks, benefits, and alternatives discussed, and informed consent obtained. ASA Physical Status: ASA2 Mod Systemic Disease Anesthetic Plan: MAC Bene/Risks/Altern/Consents: Yes HP Complete Prior to Induction: Yes Marcelo Antoine MD Sep 07, 2016 07:26
[2016-09-07 07:36] VITALS: BP 136/58; PULSE 77; RESP 15; O2SAT 99
[2016-09-07] MEDS ORDERED: MetoCLOpramide 5 mg/mL 2 mL Inj IVPUSH PRN (08:25)
[2016-09-07] MEDS ORDERED: Ondansetron 2 mg/mL 2 mL Inj IVPUSH PRN (08:25)
[2016-09-07] MEDS ORDERED: Lactated Ringer's 1,000 ML IV SCH (08:25)
--- NOTE | 2016-09-07 08:25 | PCM.ANEP1 ---
Post Anesthesia Phase 1 PACU Phase 1 Assessment Vital Signs Vital Signs Date Time Temp Pulse Resp B/P Pulse Ox O2 Delivery O2 Flow Rate FiO2 09/07/16 07:36 36.5 77 15 136/58 99 Room Air Anesthetic Administered: MAC Level of Alertness: Awake, talking LOAIZA's with Equal Strength: Yes Pain: No Oxygen Delivery: Room Air Lungs: Clear to Auscultation, Normal Air Movement Marcelo Antoine MD Sep 07, 2016 08:25
[2016-09-07 08:27] VITALS: BP 111/56; PULSE 71; RESP 16; O2SAT 94
--- NOTE | 2016-09-07 08:28 | PCM.ENDCOL ---
Colonoscopy Date of Service: Sep 07, 2016 Physician Iraj Cr MD Pre Procedure Diagnosis: Screening personal history of colon polyp Post Procedure Dx & Findings: Polyps hemorrhoids diverticuli Procedure Colonoscopy Prep Adequate Withdrawal 15 minutes PROCEDURE IN DETAIL: After unremarkable rectal examination, the Olympus video colonoscope was inserted into patient's anal canal and was against the cecum. Landmarks are identified including the use of up and appendiceal orifice. 3 hemostatic clip noted from prior intervention for bleeding AVM. This was done about 2 weeks ago. Scope was withdrawn systematically The mucosa of the cecum, ascending, transverse, descending, sigmoid, rectal mucosa lined with whitish, pink, smooth, glistening, normal-appearing mucosa, normal fine branching, underlying vascularity, normal haustra. The patient tolerated procedure and was transported to observation area. In the rectosigmoid junction there were two 2-3 mm polyps were resected completely using cold snare. In the sigmoid colon there a few small diverticuli. In the rectum retroflexion was done which showed hemorrhoids. Anal canal was inspected carefully on the way out and hemorrhoids noted. Impression Polyp 2 status post complete removal Hemorrhoids Diverticuli Personal history of colon polyp Recommendation Repeat colonoscopy 5 years Diverticula diet Presedation Assessment Risks and Benefits Informed consent was obtained from the patient after all risks and benefits including but not limited to drug reaction, infection, pain, bleeding, perforation, as well as alternatives were discussed. Patient monitoring Continuous pulse oximetry, cardiac monitoring, blood pressure monitoring, IV access, and oxygen at 2L per nasal cannula. Complications There were no periprocedural complications identified. Post Procedure Plan Post Procedure Recommendations 1. Restrict activities today. 2. Resume normal activities in the morning. 3. Resume medications. 4. Patient informed of normal post procedure side effects as bloating, drowsiness, blood streaking in the stool. 5. average risk CRCS. If colon polyps come back as: -Hyperplastic- can repeat colonoscopy in 10 years -Tubular adenoma- repeat colonoscopy in 5 years -Tubulovillous/villous adenoma- repeat colonoscopy in 3 years -If any dysplasia- return to clinic as soon as possible 6. Please don't hesitate to call me with any questions. Iraj Cr MD Sep 07, 2016 08:27
--- NOTE | 2016-09-07 08:31 | PCM.ANEP2 ---
Post Anesthesia Evaluation ASA/CMS Post Anesthesia VS in Patient's Normal Range?: Yes Resp Stable; Airway Patent?: Yes CV Function & Hydration Stable: Yes Mental Status Recovered?: Yes Pain control Satisfactory?: Yes N/V Control Satisfactory?: Yes Mracelo Antoine MD Sep 07, 2016 08:31
[2016-09-07 08:44] VITALS: BP 96/47; PULSE 73; RESP 14; O2SAT 98
[2016-09-07 08:49] VITALS: BP 146/81; PULSE 70; RESP 12; O2SAT 98
--- NOTE | 2016-09-08 14:36 | PATH ---
SURGICAL PATHOLOGY Attending Physician:Iraj Cr M.D. CASE STATUS: Signed Out PATIENT NAME: YADI KUMAR PID: [id number] : 1945 DATE COLLECTED:09/07/2016 15:54 SPECIMEN: Colon, Biopsy CLINICAL HISTORY: 1).RECTAL SIGMOID POLYP X2 FINAL DIAGNOSIS: 1.RECTOSIGMOID POLYP: HYPERPLASTIC POLYPS INVOLVING BOTH BIOPSY FRAGMENTS. ICD10 CODE K63.5 GROSS DESCRIPTION: The specimen is received in one formalin filled container labeled with the patient's name, sublabeled "rectal sigmoid polyp X2" and consists of 2 portions of tissue which aggregate to 0.4 x 0.3 x 0.3 CM. The specimen is entirely submitted in one cassette. 09/07/2016 DAC MICRO DESCRIPTION: See diagnosis. ICD-9 CODES: CPT CODES: 1: 31101 Electronically Signed Out Ant Warner MD [facility] Pathology [facility] [address], [place] [address] Technical component performed at [facility], [facility] [address], [place], [address]
== END 2016-09-07 23:59 | disposition home or self-care (01) ==
LOC: END 23:59
PROVIDERS: ATTEND Internal Medicine
DX: Z12.11 Encounter for screening for malignant neoplasm of colon (principal); Z86.010 Personal history of colon polyps; Z80.0 Family history of malignant neoplasm of digestive organs; K63.5 Polyp of colon; K64.9 Unspecified hemorrhoids; K57.30 Diverticulosis of large intestine without perforation or abscess without bleeding; I10 Essential (primary) hypertension; I38 Endocarditis, valve unspecified; R13.10 Dysphagia, unspecified; F41.9 Anxiety disorder, unspecified; F32.9 Major depressive disorder, single episode, unspecified; Z95.2 Presence of prosthetic heart valve; Z87.891 Personal history of nicotine dependence; Z79.82 Long term (current) use of aspirin; Z87.442 Personal history of urinary calculi
CPT/HCPCS: 45385; 88305; J2250; J3010; J7120

== ENCOUNTER 2016-12-30 02:04 | Inpatient (IN) | payer MEDICARE, OTHER ==
[~2016-12-30 02:04] MED LIST changes: -Lactated Ringer's 1,000 ML IV ONE; -VERA240C PO
[2016-12-30 02:13] LABS: BASOPHILS % (AUTO) 0.5 % (0-3); EOSINOPHILS % (AUTO) 1.5 % (0-5); MONOCYTES % (AUTO) 9.2 % (4-12); Mean Corpuscular Hemoglobin 26.5 pg (27.0-35.0); Mean Corpuscular Volume 82.6 fL (81-100); NEUTROPHILS % (AUTO) 53.5 % (40-74); Platelet Count 251 bil/L (150-400)
[2016-12-30] MEDS ORDERED: Heparin 1,000 Units/500 mL NS Premix IV ONE (02:26)
[2016-12-30] MEDS ORDERED: Heparin 10,000 Unit/1,000 mL NS Premix IV ONE (02:26)
[2016-12-30] MEDS ORDERED: Nitroglycerin 50,000 mcg/250 mL D5W Premix IV ONE (02:26)
[2016-12-30] MEDS ORDERED: Heparin 1,000 Unit/mL 10 mL Inj ONE (02:30)
[2016-12-30] MEDS ORDERED: DOPamine 800 mg/250 mL D5W Premix IV ONE (02:40)
[2016-12-30 02:54] LABS: Magnesium 1.9 mg/dL (1.6-2.6)
[2016-12-30 02:56] LABS: TROPONIN T 0.036 ug/L (0.0-0.011)
--- NOTE | 2016-12-30 02:57 | ED.REPORT ---
HPI-Cardiac Arrest Date of Service Dec 30, 2016 ED Provider: Jayme Nice MD Pt is a 71 year old female presenting to the ED via EMS complaining of chest pain. Pt arrives to the ED unresponsive. Medics report that they found her down in her driveway as her was trying to get her into the car. Per the pt complained of chest pain and not feeling well. Medics performed EKG in the field showing a STEMI. Her initial blood pressure was in the 70s. When medics arrived she was talking but was not making sense, when they entered the hospital she had a far off stare and became unresponsive. Nursing Notes Stated Complaint: STEMI/CARDIAC ARREST Chief Complaint: Critical Care/Intubated Nursing Notes Reviewed: Yes Allergies: Coded Allergies: Beta-Blockers (Beta-Adrenergic Bloc (Verified Allergy, Intermediate, Hives , 09/07/16) atenolol (Verified Allergy, Mild, 09/07/16) Scheduled Aspirin (Aspirin) 81 Mg Tablet 81 MG PO DAILY Calcium Carbonate/Vitamin D3 (Calcium 500 + Vit D Caplet) 1 Each Tablet 1 EACH PO DAILY Cholecalciferol (Vitamin D3) (Vitamin D3) 2,000 Unit Tablet 2,000 UNIT PO DAILY Fexofenadine (Milvia Allergy) 180 Mg Tablet 180 MG PO DAILY Gabapentin (Gabapentin) 600 Mg Tablet 600 MG PO QID Gemfibrozil (Lopid) 600 Mg Tablet 600 MG PO BID Lansoprazole DR (Prevacid) 30 Mg Capsule 30 MG PO BID Lisinopril (Lisinopril) 10 Mg Tablet 10 MG PO DAILY Multivitamin (Multivitamins) 1 Each Capsule 1 EACH PO DAILY Sertraline HCl (Sertraline) 100 Mg Tablet 100 MG PO HS Simvastatin (Simvastatin) 20 Mg Tablet 20 MG PO HS Verapamil (Calan) 120 Mg Tablet 120 MG PO DAILY Scheduled PRN ([Darvocet-N]) 100 MG PO QID PRN PRN For Pain Bisacodyl (Dulcolax) 5 Mg Tablet.dr 10 MG PO DAILY PRN PRN For Constipation diphenhydrAMINE HCl (Benadryl) 25 Mg Capsule 25 MG PO Q4 PRN PRN For Itching Miscellaneous Medications Nitroglycerin SL (Nitroglycerin SL) 0.4 Mg Tab.subl 0.4 MG SL General Time Seen by Provider: 02:04 Chief Complaint Cardiac arrest in ED Hx Obtained From: Spouse, EMS Arrived By: Ambulance Onset Occurred: Just prior to arrival Symptom Duration: Since onset Progression Since Onset: Rapidly worsening Recent Healthcare: No recent doctor visit, No recent hospitalization Similar Sx Previous: No Past Medical History Past Medical History Hypertension, Valvular Heart Disease (Bovine AV replacement), Dysphagia, GERD, Kidney stones, UTI, back injury Past Surgical History Bovine aortic valve replacement (2009), julien, hysterectomy, knee, ankle surgery Smoking History Unknown if Ever Smoker Ambulatory Status Independent Review of Systems Unable to Obtain ROS Patient condition, Mental status Cardiovascular: Reports: Chest pain Neurologic: Reports: Change LOC Physical Exam Initial Vital Signs HR:116 BP:154/130 O2:68% Resp Rate:33 Initial VS: Reviewed, Vital signs abnormal Head / Eyes: Atraumatic, Normocephalic, PERRL ENT: Mucous membranes moist, Conjunctiva normal, No scleral icterus Extremities: Vascular intact, Neuro intact, No swelling, No tenderness Appearance / Presentation: Positive: Obese General/Constitutional: Pt unresponsive. When she arrived, she was obtunded. Intermittent apnea with very poor color. Respiratory / Chest: Atraumatic Intubated Abdomen: Atraumatic, Soft Upper Extremity / MS: No edema Lower Extremity / Pelvis / MS: No edema Skin: Warm, Dry Skin breakdown in folds of groin and chest and intertriginous folds under breast. Rectum / Perineum: Atraumatic Rectum / Perineum Abnl: Positive: Hemorrhoid bleeding Rectal bleeding from what appears to be bleeding from a hemorrhoid Interpretation & Diagnostics Lab Results Interpretation Result Diagram: 12/30/16 0212 12/30/16 0212 Test 12/30/16 02:12 White Blood Count 18.8th/mm3 (3.8-10.1) Red Blood Count 4.38mil/mm3 (3.90-5.20) Hemoglobin 11.6g/dL (12.0-15.6) Hematocrit 36.2% (35.0-46.0) Mean Corpuscular Volume 82.6fL (81-100) Mean Corpuscular Hemoglobin 26.5pg (27.0-35.0) Mean Corpuscular Hemoglobin Concent 32.0% (32.0-37.0) Red Cell Distribution Width 15.3% (12.3-15.4) Platelet Count 251bil/L (150-400) Neutrophils (%) (Auto) 53.5% (40-74) Lymphocytes (%) (Auto) 34.9% (14-46) Monocytes (%) (Auto) 9.2% (4-12) Eosinophils (%) (Auto) 1.5% (0-5) Basophils (%) (Auto) 0.5% (0-3) Sodium Level 137mEq/L (134-144) Potassium Level 3.4mEq/L (3.5-5.2) Chloride Level 99mEq/L (97-108) Carbon Dioxide Level 19mmol/L (18-29) Blood Urea Nitrogen 11mg/dL (8-27) Creatinine 0.68mg/dL (0.57-1.00) Estimat Glomerular Filtration Rate 123mL/min (>59) Glucose Level 175mg/dL (60-99) Calcium Level 8.6mg/dL (8.5-10.1) Magnesium Level 1.9mg/dL (1.6-2.6) Total Bilirubin 0.9mg/dL (0.0-1.2) Aspartate Amino Transf (AST/SGOT) 31U/L (0-50) Alanine Aminotransferase (ALT/SGPT) 38U/L (0-32) Alkaline Phosphatase 97U/L (25-165) Troponin T 0.036ug/L (0.0-0.011) Total Protein 6.6g/dL (6.4-8.4) Albumin 4.0g/dL (3.4-5.0) Lab Results Interpretation: Elevated white blood count, elevated troponin ECG Interpretation ECG Interpretation: Diffuse ischemic changes with some ST elevation in AVR and V1. Time: 02:24 Interpreted by: ED physician Procedures Intubation Time: 02:10 Procedure Performed by: ED physician Consent / Setup / Site Prep: No consent - emergent, Time-out performed, Oxygen administered, Pulse oximeter applied, podopediatrician applied, Hand hygiene observed, Stand sterile technique, Removed dentures Patient Position: Neutral position Re-Eval/Medical Decision Med Decision/Clinical Course Time of 0304 12/30/2016. 51-year-old female who complained of substernal chest pain at home. She collapsed while she was going out to get in the car. Medics found her able to speak but not making sense. EKG showed probable ST elevation and diffuse ST depression. Shortly after arriving here she became apneic and at one point requiring CPR. She was given several rounds of epinephrine and settled into a wide complex tachycardia around 130 bpm. EKG at that time confirmed the concern for acute ischemia and possible infarction. Dr. Valero arrived on the scene. Patient gradually lost vital signs again and was eventually pronounced at 0304. Re-Evaluation/Progress #1: Time of Eval: 02:10 Patient Status: Condition improved Re-Evaluation/Progress Note: Pt intubated Re-Evaluation/Progress #2: Time of Eval: 02:18 Re-Evaluation/Progress Note: Spoke to pt's . Re-Evaluation/Progress #3: Time of Eval: 02:21 Patient Status: Condition improved Re-Evaluation/Progress Note: Pt's heartbeat returned. Re-Evaluation/Progress #4: Time of Eval: 02:30 Patient Status: Condition improved Re-Evaluation/Progress Note: HR 116 BP 154/130 Re-Evaluation/Progress #5: Time of Eval: 02:38 Re-Evaluation/Progress Note: Pt bradycardic at 49 Re-Evaluation/Progress #6: Time of Eval: 02:41 Re-Evaluation/Progress Note: Pt bradycardic into the 30s Re-Evaluation/Progress #7: Time of Eval: 02:43 Re-Evaluation/Progress Note: Started CPR Re-Evaluation/Progress #8: Time of Eval: 03:04 Re-Evaluation/Progress Note: CPR terminated. Pt too unstable to go to chemical laboratory technician, no pulse identified. Re-Evaluation/Progress #9: Time of Eval: 06:33 Re-Evaluation/Progress Note: Performed physical exam. Consultation #1: Referral / Consult Name: Tyson Valero MD Consulted With: Cardiology Call Returned at: 02:39 Note: Give the pt an epi drip. Consultation #2: Referral / Consult Name: Tyson Valero MD Consulted With: Cardiology Call Returned at: 03:03 Note: Unable to get a pulse. Unable to get an echo. Pt too unstable to go to the chemical laboratory technician. Stop CPR. Counseled Regarding: Diagnosis, Lab results Discharge & Departure Impression: Primary Impression: Cardiac arrest Additional Impression: STEMI (ST elevation myocardial infarction) Involved coronary artery: unspecified coronary artery Qualified Code: I21.3 - ST elevation (STEMI) myocardial infarction of unspecified site Disposition: All VS Reviewed: Yes Condition: Referrals: Mohsen Crooks MD (PCP) Crit Care Except Billable Proc Time Spent: 30-74 minutes Services Performed: Patient management by me, Time spent at bedside, Reviewing test results, Reviewing imaging, Discussing patient care, Documentation in record, Time with fam/surrogate Scribe Attestation Portions of this note were transcribed by Madeline Edgar. I, Dr. Nice personally performed the history, physical exam and medical decision-making; I reviewed and confirmed the accuracy of the information in the transcribed note. Signed by: Suly Barillas, 12/30/2016 and 0600. copies to: Mohsen Crooks MD, Howard L MD Dec 30, 2016 02:56 MADELINE EDGAR Dec 30, 2016 03:13
[2016-12-30] MEDS ORDERED: EPINEPHrine 0.1 mg/mL 10 mL Syringe ONE (03:03)
--- NOTE | 2016-12-30 05:23 | CONS ---
[address] [address] CONSULTATION REPORT PATIENT: YADI KUMAR : 1945 MR#: [id number] ADMIT: 12/30/2016 JOB ID: [id number] DATE OF SERVICE: 12/30/2016 CARDIOLOGY CONSULTATION NOTE--INITIAL CRITICAL CARE EVALUATION (EMERGENCY DEPARTMENT): DATE OF EVALUATION: Friday, December 30, 2016 CONSULTING PHYSICIAN: Cardiology--Tyson Valero MD PROBLEMS: 1. Cardiac arrest. a. Cardiovascular collapse. b. Bradycardia. c. Electrocardiogram shows ST depression diffusely with ST elevation in aVR, 2. History of bovine cardiac valve replacement. CHIEF COMPLAINT: Called for "medical laboratory technicians activation." HISTORY OF PRESENT ILLNESS: I came emergently to the emergency department to see this patient who had arrived by EMS after being brought from home with CPR beginning on arrival to the emergency department. On arrival, the patient had no pulse and agonal bradycardia at 34 beats per minute when I initially saw her. There was no palpable pulse. CPR was re-initiated. She received boluses of intravenous epinephrine, as well as epinephrine drip. I gave intracardiac epinephrine. There was, at no time, any return of a palpable pulse. On examination, I could not hear cardiac tones or a murmur. Laboratories did not show correctable hyperkalemia, renal failure. I was able to talk to the , who told me the patient had been feeling poorly for several days with abdominal symptoms and some nausea and vomiting. She had visited her physician today. He showed me ondansetron that was prescribed. She had not been short of breath or had arrhythmic symptoms prior to her collapse. This evening, after calling EMS, because she felt poorly, she did complain of chest discomfort at that time. Her cardiac surgery was apparently done, along with all other prior cardiac evaluation was done in [place]. MEDICATIONS: I reviewed medicine bottles that were present, including verapamil, lansoprazole, lisinopril. PHYSICAL EXAMINATION: Focused evaluation during the cardiac arrest showed an elderly-appearing, morbidly obese woman, who was intubated with sangeetha pink frothy pulmonary edema fluid. No respirations. She has no evident cardiac activity. Pupils were mid-range to somewhat dilated. Cardiac examination: I heard no cardiac tones or murmur. Extremities showed no edema. Abdomen is obese. DIAGNOSTIC STUDIES: ECG: The initial ECG shows undetermined rhythm at 107 BPM, with diffuse ST depression, but ST elevation in lead aVR, possibly in lead V1. LABORATORY DATA: Laboratories not available until after the code, but showed intact potassium, magnesium, creatinine, high WBC, and intact hemoglobin. IMPRESSION/RECOMMENDATIONS: Cardiac arrest: The patient had cardiovascular collapse that was unresponsive to treatment. I spoke with the , and briefly with other family members, who were arriving, as well as with the emergency department staff, who terminated the resuscitative efforts.
== END 2016-12-30 03:04 | disposition expired ==
LOC: SED 02:04 → EDBD 02:04 → EDSEX 02:04 → EDUNIT# 02:04 → CCU 02:38
PROVIDERS: ADMIT Internal Medicine Cardiovascular Disease; ATTEND Internal Medicine Cardiovascular Disease
PROC: 0BH17EZ Insertion of Endotracheal Airway into Trachea, Via Natural or Artificial Opening (ICD-10-PCS; principal; 2016-12-30)
PROC: 5A12012 Performance of Cardiac Output, Single, Manual (ICD-10-PCS; 2016-12-30)
DX: I46.9 Cardiac arrest, cause unspecified (principal); I21.3 ST elevation (STEMI) myocardial infarction of unspecified site; Z79.82 Long term (current) use of aspirin; Z95.3 Presence of xenogenic heart valve; R57.0 Cardiogenic shock; R00.1 Bradycardia, unspecified; E66.01 Morbid (severe) obesity due to excess calories